=== PATIENT | male | born 1935 | race Caucasian/White ===

== ENCOUNTER 2017-10-27 07:27 | Day surgery (SDC) | payer MEDICARE ==
[~2017-10-27] VITALS: Ht 170.2 cm; Wt 79.6 kg
[~2017-10-27 07:27] MED LIST: ALBU90OI INH; AMLO5 PO; BENZ100A PO; CLARITIN10 MG PO; NASACORT10.8 ML NS; OMEPRAZOLE MAGN20 MG PO; PREG25 PO; TYLECOD3 PO; VITAMIN B12-FO1 EACH PO; [UNRECOGNIZED DRUG - OTHER] PO
== END 2017-10-27 10:03 | disposition home or self-care (01) ==
LOC: ORSCSDS 07:27
PROVIDERS: Ophthalmology
PROC: 08RJ3JZ Replacement of Right Lens with Synthetic Substitute, Percutaneous Approach (ICD-10-PCS; principal; 2017-10-27 09:00)
DX: H25.11 Age-related nuclear cataract, right eye (principal); H21.81 Floppy iris syndrome; I10 Essential (primary) hypertension; Z79.899 Other long term (current) drug therapy; E11.36 Type 2 diabetes mellitus with diabetic cataract
CPT/HCPCS: J2250; J3010; J3301; J7040; V2632

== ENCOUNTER → 2017-12-20 | Outpatient (CLI) | payer MEDICARE | LOC: LAB SHORT 13:36 → PLD 13:36 | DX: D48.5 Neoplasm of uncertain behavior of skin (principal) | CPT/HCPCS: 88305 ==

== ENCOUNTER → 2018-02-03 | Outpatient (CLI) | payer MEDICARE | LOC: PLD 07:43 → LAB SHORT 07:43 | DX: D48.5 Neoplasm of uncertain behavior of skin (principal) | CPT/HCPCS: 88305 ==

== ENCOUNTER 2018-08-17 08:00 | Day surgery (SDC) | payer MEDICARE ==
[~2018-08-17] VITALS: Ht 170.2 cm; Wt 77.5 kg
== END 2018-08-17 10:22 | disposition home or self-care (01) ==
LOC: ORSCSDS 08:00
PROVIDERS: Ophthalmology
PROC: 08RK3JZ Replacement of Left Lens with Synthetic Substitute, Percutaneous Approach (ICD-10-PCS; principal; 2018-08-17 09:30)
DX: H25.12 Age-related nuclear cataract, left eye (principal); H21.81 Floppy iris syndrome; I10 Essential (primary) hypertension; J45.909 Unspecified asthma, uncomplicated; Z79.899 Other long term (current) drug therapy
CPT/HCPCS: J2001; J2250; J3010; J3301; V2632

== ENCOUNTER 2020-02-07 09:10 | Emergency (ER) | payer MEDICARE ==
[~2020-02-07] VITALS: Ht 170.2 cm; Wt 72.6 kg
[2020-02-07 09:36] LABS: BASOPHILS ABSOLUTE AUTO 0.03 K/mm3 (0.00-0.23); BASOPHILS PERCENT AUTO 1 % (0-2); EOSINOPHILS ABSOLUTE AUTO 0.13 K/mm3 (0.00-0.68); EOSINOPHILS PERCENT AUTO 2 % (0-6); Hematocrit 38.7 % (37.0-53.0); Hemoglobin 13.1 g/dL (13.5-17.5); IMMATURE GRAN ABSOLUTE AUTO 0.02 K/mm3 (0.00-0.10); IMMATURE GRAN PERCENT AUTO 0 % (0-1); LYMPHOCYTES ABSOLUTE AUTO 1.28 K/mm3 (0.84-5.20); LYMPHOCYTES PERCENT AUTO 21 % (21-46); MONOCYTES ABSOLUTE AUTO 0.61 K/mm3 (0.16-1.47); MONOCYTES PERCENT AUTO 10 % (4-13); Mean Corpuscular HGB Conc 33.9 g/dL (31.5-36.5); Mean Corpuscular Volume 89 fL (80-100); NEUTROPHILS ABSOLUTE AUTO 3.99 K/mm3 (1.96-9.15); NEUTROPHILS PERCENT AUTO 66 % (41-73); Platelet Count 240 K/mm3 (150-400); RDW Coefficient Variation 12.4 % (11.7-14.2); RDW Standard Deviation 40.5 fL (35.1-46.3); Red Blood Cell Count 4.37 M/mm3 (4.30-5.90); White Blood Cell Count 6.06 K/mm3 (4.00-11.30)
[2020-02-07 09:53] LABS: Alanine Aminotransfer (ALT/SGP 19 U/L (12-78); Albumin, Blood 3.4 g/dL (3.4-5.0); Alk Phos 78 U/L (50-136); Anion Gap 6 mmol/L (6-16); Aspartate Aminotrans (AST/SGOT 23 U/L (12-37); Bilirubin, Total 0.3 mg/dL (0.1-1.0); Blood Urea Nitrogen 15 mg/dL (8-24); Bun/Creatinine Ratio 13.4 (12.0-20.0); CO2, Blood 31 mmol/L (21-32); Calcium, Blood 8.7 mg/dL (8.5-10.1); Chloride, Blood 99 mmol/L (98-108); Creatinine, Blood 1.12 mg/dL (0.60-1.20); Globulin, Blood 3.3 g/dL (2.2-4.0); Glomerular Filtration Rate >60 (60-); Glucose, Blood 89 mg/dL (70-99); Potassium, Blood 3.6 mmol/L (3.5-5.5); Sodium, Blood 136 mmol/L (136-145); Total Protein, Blood 6.7 g/dL (6.4-8.2)
[2020-02-07] MEDS ORDERED: Percocet 5-3251 EACH PO (11:04)
== END 2020-02-07 11:30 | disposition home or self-care (01) ==
LOC: ER 09:10
PROVIDERS: Emergency Medicine
DX: R55 Syncope and collapse (principal); S82.851A Displaced trimalleolar fracture of right lower leg, initial encounter for closed fracture; M25.559 Pain in unspecified hip; M54.5 Low back pain; I10 Essential (primary) hypertension; Z79.899 Other long term (current) drug therapy; Z87.891 Personal history of nicotine dependence; W19.XXXA Unspecified fall, initial encounter
CPT/HCPCS: 36415; 72100; 73600; 80053; 84484; 85025; 93005; 93010; 99151; 99284-25; J2704; J3010; J7030

== ENCOUNTER 2020-02-12 06:00 | Day surgery (SDC) | payer MEDICARE ==
[~2020-02-12] VITALS: Ht 170.2 cm; Wt 72.2 kg
[~2020-02-12 06:00] MED LIST changes: +Percocet 5-3251 EACH PO
[2020-02-12] MEDS ORDERED: Aspirin EC81 MG PO (06:36)
--- NOTE | 2020-02-12 11:26 | NUR ---
Dressing to procedure site clean, dry, intact with no visible drainage, swelling, erythema or bruising noted. Circulation checks WNL'S.
--- NOTE | 2020-02-12 11:46 | NUR ---
Patient up to Ambulate independently. Gait steady. Discharge instructions reviewed with patient. Patient verbalizes understanding. Copy given to patient to take home. Dressing to procedure site clean, dry, intact with no visible drainage, swelling, erythema or bruising noted. Patient States Post-Procedure ride home has been arranged with . Discharged via wheelchair to private car for ride home.
== END 2020-02-12 11:48 | disposition home or self-care (01) ==
LOC: ORSCMMR 06:00 → ORD 07:30 → ORSCMMR 07:30
PROVIDERS: Orthopaedic Surgery
PROC: 0QSG04Z Reposition Right Tibia with Internal Fixation Device, Open Approach (ICD-10-PCS; principal; 2020-02-12 07:30)
PROC: 0QSJ04Z Reposition Right Fibula with Internal Fixation Device, Open Approach (ICD-10-PCS; principal; 2020-02-12 07:30)
DX: S82.851A Displaced trimalleolar fracture of right lower leg, initial encounter for closed fracture (principal); I10 Essential (primary) hypertension
CPT/HCPCS: 72170; A9270-GY; C1713; C1769; J0690; J1100; J2405; J2704; J3010; J7120

== ENCOUNTER 2021-04-21 12:01 | Day surgery (SDC) | payer MEDICARE ==
[~2021-04-21] VITALS: Ht 170.2 cm; Wt 77.8 kg
[~2021-04-21 12:01] MED LIST changes: +Aspirin EC81 MG PO; +FISH OIL 1,2001 EAC7 PO; +FLAX PO; +GLUCHON PO; +TRAM50 PO
--- NOTE | 2021-04-21 14:06 | NUR ---
04/21/21 1406 Chela Alcantara PT. DENIES PAIN. GOOD CAP REFILL TO RIGHT TOES. PT. ABLE TO FEEL TOUCH TO RIGHT TOES. RIGHT FOOT ELEVATED UP ON PILLOW IN RECLINER & ICE PACK TO POSTERIOR RIGHT KNEE. PT. EATING SNACKS & DRINKING WATER.
== END 2021-04-21 14:51 | disposition home or self-care (01) ==
LOC: ORSCSDS 12:01
PROVIDERS: Orthopaedic Surgery
PROC: 0SPF04Z Removal of Internal Fixation Device from Right Ankle Joint, Open Approach (ICD-10-PCS; principal; 2021-04-21 12:30)
DX: T84.84XA Pain due to internal orthopedic prosthetic devices, implants and grafts, initial encounter (principal); I10 Essential (primary) hypertension; J45.909 Unspecified asthma, uncomplicated; Z79.899 Other long term (current) drug therapy
CPT/HCPCS: J0690; J2250; J2704; J3010; J7120

== ENCOUNTER 2022-12-27 09:24 | Emergency (ER) | payer OTHER ==
[~2022-12-27] VITALS: Ht 170.2 cm; Wt 76.7 kg
[2022-12-27 09:49] LABS: BASOPHILS ABSOLUTE AUTO 0.04 K/mm3 (0.00-0.23); BASOPHILS PERCENT AUTO 1 % (0-2); EOSINOPHILS ABSOLUTE AUTO 0.15 K/mm3 (0.00-0.68); EOSINOPHILS PERCENT AUTO 2 % (0-6); Hematocrit 35.3 % (37.0-53.0); Hemoglobin 12.2 g/dL (13.5-17.5); IMMATURE GRAN ABSOLUTE AUTO 0.05 K/mm3 (0.00-0.10); IMMATURE GRAN PERCENT AUTO 1 % (0-1); LYMPHOCYTES PERCENT AUTO 17 % (21-46); MONOCYTES ABSOLUTE AUTO 0.72 K/mm3 (0.16-1.47); MONOCYTES PERCENT AUTO 10 % (4-13); Mean Corpuscular HGB 29.8 pg (26.0-34.0); Mean Corpuscular HGB Conc 34.6 g/dL (31.5-36.5); Mean Corpuscular Volume 86 fL (80-100); Mean Platelet Volume 8.9 fL (9.1-12.4); NEUTROPHILS ABSOLUTE AUTO 4.95 K/mm3 (1.96-9.15); NEUTROPHILS PERCENT AUTO 70 % (41-73); Platelet Count 285 K/mm3 (150-400); RDW Coefficient Variation 12.8 % (11.7-14.2); RDW Standard Deviation 39.9 fL (35.1-46.3); White Blood Cell Count 7.11 K/mm3 (4.00-11.30)
[2022-12-27 10:06] LABS: Albumin, Blood 3.2 g/dL (3.4-5.0); Albumin/Globulin Ratio 1.1 (0.8-1.8); Bilirubin, Total 0.4 mg/dL (0.1-1.0); Bun/Creatinine Ratio 19.3 (12.0-20.0); Calcium, Blood 8.3 mg/dL (8.5-10.1); Creatinine, Blood 0.99 mg/dL (0.60-1.20); Potassium, Blood 3.3 mmol/L (3.5-5.5); Total Protein, Blood 6.2 g/dL (6.4-8.2)
== END 2022-12-27 11:13 | disposition home or self-care (01) ==
LOC: ER 09:24
PROVIDERS: Emergency Medicine
DX: R55 Syncope and collapse (principal); S60.222A Contusion of left hand, initial encounter; S61.412A Laceration without foreign body of left hand, initial encounter; S16.1XXA Strain of muscle, fascia and tendon at neck level, initial encounter; I10 Essential (primary) hypertension; W18.30XA Fall on same level, unspecified, initial encounter; Z79.899 Other long term (current) drug therapy
CPT/HCPCS: 73130; 80053; 85025; 90714; 93005; 93010; J7030

== ENCOUNTER → 2023-10-04 | Outpatient (CLI) | payer OTHER ==
[2023-10-06 08:02] LABS: Stool Occult Blood Guaiac 1 Neg (Neg); Stool Occult Blood Guaiac 2 Neg (Neg)
[2023-10-06 08:03] LABS: Stool Occult Blood Guaiac 3 Neg (Neg)
== END ==
LOC: LAB SHORT 14:13 → LAB 14:13
PROVIDERS: Internal Medicine
DX: D64.9 Anemia, unspecified (principal)
CPT/HCPCS: 82272